=== PATIENT | male | born 1965 | race Caucasian/White ===

== ENCOUNTER 2016-12-23 | Emergency (ER) | payer BC ==
[~2016-12-23] MED LIST: COLACE100 MG PO; LEVOTHYROXINE25 MC1 PO; LOVASTATIN40 M1 PO; NORCO 5/3251 TA1 PO; NORVASC5 MG PO; OMEPRAZOLE20 M2 PO; SYNTHROID175 MCG PO
[2016-12-23] MEDS ORDERED: BISOPROLOL FUMAR5 M1 PO (12:56)
[2016-12-23] MEDS ORDERED: NORVASC10 M2 PO (12:56)
[2016-12-23] MEDS ORDERED: FLOMAX0.4 M1 PO ×2 (12:56→16:40)
[2016-12-23] MEDS ORDERED: LOVASTATIN40 M2 PO (12:56)
[2016-12-23] MEDS ORDERED: OMEPRAZOLE20 M3 PO (12:57)
[2016-12-23] MEDS ORDERED: SYNTHROID175 MC1 PO (13:47)
[2016-12-23] MEDS ORDERED: ONE DAILY COMP1 EAC1 PO (13:48)
[2016-12-23] MEDS ORDERED: NORCO 5-325 TA1 EACH PO (16:40)
[2016-12-23] MEDS ORDERED: ZOFRAN ODT4 MG PO (16:40)
== END 2016-12-23 16:44 ==
DX: N13.2 Hydronephrosis with renal and ureteral calculous obstruction (principal); I10 Essential (primary) hypertension; E78.5 Hyperlipidemia, unspecified; N40.0 Benign prostatic hyperplasia without lower urinary tract symptoms; Z98.890 Other specified postprocedural states; Z88.0 Allergy status to penicillin; F17.200 Nicotine dependence, unspecified, uncomplicated; Z79.899 Other long term (current) drug therapy